=== PATIENT | male | born 1960 | race Asian ===

== ENCOUNTER 2016-10-30 11:45 | Day surgery (SDC) | payer OTHER ==
[2016-10-28 15:16] VITALS: BMI 28.8
[~2016-10-30 11:45] MED LIST: ceFAZolin SODIUM 1 GM VIAL IVPB ONE
[2016-10-30] MEDS ORDERED: ceFAZolin SODIUM 1 GM VIAL IVPB ONE (12:40)
[2016-10-30] MEDS ORDERED: PROPOFOL 20 ML ONE (14:19)
[2016-10-30] MEDS ORDERED: MIDAZOLAM HCL 2 MG/2 ML SINGLE DOSE VIAL ONE (14:22)
[2016-10-30] MEDS ORDERED: DEXAMETHASONE SOD PHOSPHATE 4 MG/1 ML VIAL ONE (14:48)
[2016-10-30] MEDS ORDERED: oxyCODONE HCL 5 MG TABLET PO PRN (15:19)
[2016-10-30] MEDS ORDERED: ONDANSETRON 4 MG/2 ML VIAL IVPUSH PRN (15:19)
[2016-10-30] MEDS ORDERED: LACTATED RINGERS SOLUTION 1,000 ML IV SCH (15:30)
[2016-10-30 17:14] VITALS: TEMP 98
[2016-10-30 18:39] VITALS: PULSE 60
[2016-10-30 18:51] VITALS: BP 134/80
--- NOTE | 2016-10-31 16:30 | OP ---
DATE OF OPERATION: 10/30/2016 SURGEON: Rosmery Chaparro MD ANESTHESIA: General. PREOPERATIVE DIAGNOSES: Hematuria and urethral stricture. POSTOPERATIVE DIAGNOSIS: Urethral stricture. PROCEDURE: Cystoscopy, dilatation and Gates catheter placement. FINDINGS: The patient has a meatal stenosis, then anterior urethral stricture which is pretty long. Cystoscope could not be passed past the stricture. FINDING: The stricture was almost a centimeter long, just distal to the prostatic urethra in the pendulous portion. Bladder neck was wide open. Bladder shows areas of inflammatory changes. It was also noted during the procedure that the patient is incontinent, dribbling urine before the start of the procedure and during the procedure. There was no evidence of any bladder tumor noted. DESCRIPTION OF PROCEDURE: With the patient in lithotomy position, under anesthesia, he was prepped and draped in the usual manner. A meatal dilatation was carried out and cystoscopy was performed. A severe stricture was identified. Then, a guidewire was placed through the strictured portion with considerable difficulty. Then, using catheter, the urethra was dilated up to 20-Gabonese in size. Then, the cystoscopy was performed and the findings are noted above. Before the end of the procedure, a 16 Gates was left indwelling. The patient tolerated the procedure well and left the operating room in satisfactory condition. ROSMERY CHAPARRO M.D. [id number]
== END 2016-10-30 18:35 | disposition home or self-care (01) ==
LOC: JASU-SURG 11:45
PROVIDERS: ATTEND Urology
PROC: 0T9B70Z Drainage of Bladder with Drainage Device, Via Natural or Artificial Opening (ICD-10-PCS; 2016-10-30)
PROC: 0T7D8ZZ Dilation of Urethra, Via Natural or Artificial Opening Endoscopic (ICD-10-PCS; principal; 2016-10-30 13:00)
DX: N35.9 Urethral stricture, unspecified (principal)
CPT/HCPCS: 36415; 85730; 94760